=== PATIENT | female | born 1955 | race African-American/Black ===

== ENCOUNTER 2016-07-05 20:48 | Observation (INO) | payer OTHER, BC ==
[~2016-07-05] VITALS: Ht 162.6 cm; Wt 88.7 kg
[~2016-07-05 20:48] MED LIST: ASPIRIN325 MG PO; ATARAX,VISTARIL25 MG PO; CYANOCOBALAM1000 MCG PO; DAILY VITAMIN1 EAC8 PO; DILAUDID4 MG PO; DONEPEZIL HCL10 MG PO; EFFEXOR25 MG PO; ELAVIL25 MG PO; FIORICET,ESG1 TABLET PO; FISH OIL 1,0001 EAC7 PO; FLOMAX0.4 MG PO; GABAPENTIN300 MG PO; HYDROXYZINE HCL25 MG PO; IMODIUM MS REL1 EACH PO; INNOPRAN XL80 MG PO; LAMOTRIGINE100 MG PO; LITE COAT ASPI325 M1 PO; MEDROL DOSEPAK4 MG PO; MEMANTINE HCL10 MG PO; METHOCARBAMOL500 MG PO; PERCOCET 5/31 TABLET PO; SYNTHROID25 MCG PO; THORAZINE10 MG PO; VENLAFAXINE HCL25 MG PO; VITAMIN B-6100 MG PO; VITAMIN B6; VITAMIN D; VITAMIN D1000 INTUN PO; VITAMIN D5000 UNI1 PO; ZOCOR40 MG PO; ZOFRAN ODT4 MG PO
[2016-07-05 22:08] LABS: HEMATOCRIT 31.2 % (36.0-46.0); MCHC 32.1 G/DL (30.0-36.0); MCV 81.3 FL (83-99); MEAN PLAT.VOLUME 11.8 uM^3 (9.5-12.4); PLATELET COUNT 254 K/uL (156-360); RBC DIS.WIDTH-SD 46.1 % (39-53); RED BLOOD COUNT 3.84 M/uL (3.80-5.20); WHITE BLOOD COUNT 5.2 K/uL (4.1-10.2)
[2016-07-05 22:18] LABS: CHLORIDE 107 mEq/L (99-109); POTASSIUM 3.8 mEq/L (3.7-5.4); SODIUM 140 mEq/L (136-147)
[2016-07-05 22:19] LABS: GLUCOSE 87 mg/dL (70-99)
[2016-07-05 22:21] LABS: ANION GAP 9 MEQ/L (2-14)
[2016-07-05 22:23] LABS: GFR ESTIMATE (CALCULATED) > 59 mL/min/
[2016-07-05 22:24] LABS: UREA NITROGEN (BUN) 16 mg/dL (9-23)
[2016-07-05 22:29] LABS: TROP-I INTERPRETATION NEGATIVE; TROPONIN-I < 0.01 ng/mL (0.0-0.30)
[2016-07-05] MEDS ORDERED: ZOLPIDEM TARTRAT5 MG PO (23:31)
[2016-07-05] MEDS ORDERED: FUROSEMIDE40 MG PO (23:31)
[2016-07-05] MEDS ORDERED: FLONASE16 G1 BOTH NARES (23:32)
[2016-07-05] MEDS ORDERED: TAMSULOSIN HCL0.4 MG PO (23:32)
[2016-07-05] MEDS ORDERED: OXYCODONE HCL15 MG PO (23:33)
[2016-07-05] MEDS ORDERED: ATARAX,VISTARIL25 MG PO (23:33)
[2016-07-05] MEDS ORDERED: OXYCODONE HCL E40 MG PO (23:34)
[2016-07-05] MEDS ORDERED: LINZESS290 MCG PO (23:34)
[2016-07-05] MEDS ORDERED: DAILY VITE1 EAC1 PO (23:38)
[2016-07-06 00:59] VITALS: BP 123/79
[2016-07-06 01:12] VITALS: BP 148/71
[2016-07-06 01:32] LABS: HDL CHOLESTEROL 79 MG/DL (Desirable>=50); LDL CHOLESTEROL 106 mg/dL (Desirable<100); NON-HDL CHOLESTEROL 118 mg/dL (Desirable<160); TOTAL CHOLESTEROL 197 mg/dL (Desirable<200); TRIGLYCERIDES 61 MG/DL (Normal: <150)
[2016-07-06 05:57] VITALS: BP 127/60
[2016-07-06 06:15] LABS: HEMATOCRIT 27.9 % (36.0-46.0); MCH 26.1 PG (29.0-34.0); MCHC 32.3 G/DL (30.0-36.0); MCV 80.9 FL (83-99); MEAN PLAT.VOLUME 11.7 uM^3 (9.5-12.4); PLATELET COUNT 227 K/uL (156-360); RBC DIS.WIDTH-CV 16.1 % (11.8-14.6); RBC DIS.WIDTH-SD 47.8 % (39-53); RED BLOOD COUNT 3.45 M/uL (3.80-5.20); WHITE BLOOD COUNT 4.4 K/uL (4.1-10.2)
[2016-07-06 06:37] LABS: ALKALINE PHOSPHATASE 80 IU/L (3-129); ANION GAP 6 MEQ/L (2-14); CHLORIDE 108 MEQ/L (99-109); GFR ESTIMATE (CALCULATED) > 59 mL/min/; GLUCOSE 94 mg/dL (70-99); IRON 42 MCG/DL (35-150); POTASSIUM 4.2 MEQ/L (3.7-5.4); SAMPLE HEMOLYSIS CHECK 0; SAMPLE ICTERIC CHECK 0; SAMPLE LIPEMIA CHECK 0; SODIUM 141 MEQ/L (136-147); TOTAL BILIRUBIN 0.3 MG/DL (0.0-1.0); UREA NITROGEN (BUN) 13 mg/dL (9-23)
[2016-07-06 06:57] LABS: Estimated Average Glucose 114 mg/dL (70-123); HEMOGLOBIN A1c (GLYCOHEMOGLOB) 5.6 % HGB (Below 5.7)
[2016-07-06 07:38] VITALS: BP 133/72
[2016-07-06 07:58] LABS: FERRITIN 11 NG/ML (10-291)
[2016-07-06 12:18] VITALS: BP 134/60
== END 2016-07-06 14:22 | disposition home or self-care (01) ==
LOC: EME 20:48 → 5WEST 23:26 → EDOF 23:26 → 5WEST 07-06 00:40
PROVIDERS: Internal Medicine
DX: G43.909 Migraine, unspecified, not intractable, without status migrainosus (principal); Z86.73 Personal history of transient ischemic attack (TIA), and cerebral infarction without residual deficits; E03.9 Hypothyroidism, unspecified; M54.30 Sciatica, unspecified side; K58.9 Irritable bowel syndrome, unspecified; Z98.84 Bariatric surgery status; E66.9 Obesity, unspecified; Z68.33 Body mass index [BMI] 33.0-33.9, adult; Z79.899 Other long term (current) drug therapy
CPT/HCPCS: 70450; 70551; 71020; 80048; 80053; 80061; 82607; 82728; 83036; 83540; 84466; 84484; 85027; 93005; 93880; 99281; 99285; G0378; G8978 GP CH; G8979 GP CH; G8980 GP CH; J0780; J1200; J1644; J7030

== ENCOUNTER 2016-08-17 23:25 | Emergency (ER) | payer OTHER, BC ==
[~2016-08-17] VITALS: Ht 162.6 cm; Wt 94.9 kg
[~2016-08-17 23:25] MED LIST changes: +DAILY VITE1 EAC1 PO; +FLONASE16 G1 BOTH NARES; +FUROSEMIDE40 MG PO; +LINZESS290 MCG PO; +OXYCODONE HCL E40 MG PO; +OXYCODONE HCL15 MG PO; +TAMSULOSIN HCL0.4 MG PO; +ZOLPIDEM TARTRAT5 MG PO
[2016-08-17 23:59] LABS: EOSINOPHIL (%) 0.6 % (0-5); EOSINOPHIL COUNT 0.1 K/uL (0-0.3); HEMATOCRIT 36.6 % (36.0-46.0); IMMATURE GRANULOCYTE (%) 0.5 % (0.0-0.7); IMMATURE GRANULOCYTE COUNT 0.1 K/uL; INSTRUMENT ABS NEUTROPHIL CT 13.3 K/uL; LYMPHOCYTE COUNT 1.5 K/uL (1.0-2.8); MCH 26.1 PG (29.0-34.0); MCHC 31.4 G/DL (30.0-36.0); MONOCYTE (%) 5.7 % (3-12); MONOCYTE COUNT 0.9 K/uL (0-0.8); NEUTROPHIL (%) 83.7 % (45-76); NEUTROPHIL COUNT 13.3 K/uL (1.8-6.4); PLATELET COUNT 304 K/uL (156-360); RBC DIS.WIDTH-CV 15.9 % (11.8-14.6); RBC DIS.WIDTH-SD 48.5 % (39-53); RED BLOOD COUNT 4.41 M/uL (3.80-5.20); WHITE BLOOD COUNT 15.9 K/uL (4.1-10.2)
[2016-08-18 00:12] LABS: CHLORIDE 101 mEq/L (99-109); POTASSIUM 3.4 mEq/L (3.7-5.4); SODIUM 141 mEq/L (136-147)
[2016-08-18 00:14] LABS: GLUCOSE 74 mg/dL (70-99)
[2016-08-18 00:15] LABS: ANION GAP 12 MEQ/L (2-14)
[2016-08-18 00:16] LABS: TOTAL BILIRUBIN 0.2 mg/dL (0.0-1.0)
[2016-08-18 00:17] LABS: ALKALINE PHOSPHATASE 132 IU/L (3-129)
[2016-08-18 00:18] LABS: GFR ESTIMATE (CALCULATED) > 59 mL/min/
[2016-08-18 00:19] LABS: UREA NITROGEN (BUN) 22 mg/dL (9-23)
[2016-08-18 00:20] LABS: TROP-I INTERPRETATION NEGATIVE; TROPONIN-I < 0.01 ng/mL (0.0-0.30)
[2016-08-18 00:21] LABS: CREATINE KINASE 66 IU/L (1-294); TOTAL CK 66 IU/L (1-294)
[2016-08-18 00:26] LABS: CK-MB 0.5 ng/mL (0.0-4.9)
[2016-08-18 01:34] VITALS: BP 97/61
== END 2016-08-18 01:36 | disposition left against medical advice (07) ==
LOC: EME → EDBD 23:25 → EME 08-18 01:36
PROVIDERS: Emergency Medicine
DX: G40.909 Epilepsy, unspecified, not intractable, without status epilepticus (principal); M79.604 Pain in right leg; G43.909 Migraine, unspecified, not intractable, without status migrainosus; Z86.73 Personal history of transient ischemic attack (TIA), and cerebral infarction without residual deficits; Z88.6 Allergy status to analgesic agent; Z98.84 Bariatric surgery status
CPT/HCPCS: 70450; 80053; 81003; 82550; 82553; 84484; 85025; 99281; 99285; J0780; J1200; J7030

== ENCOUNTER 2017-09-26 20:06 | Observation (INO) | payer OTHER, BC ==
[~2017-09-26] VITALS: Ht 162.6 cm; Wt 107.7 kg
[2017-09-26 21:06] LABS: HEMATOCRIT 34.7 % (36.0-46.0); HEMOGLOBIN 11.3 G/DL (11.9-15.5); MCHC 32.6 G/DL (30.0-36.0); MCV 85.9 FL (83-99); PLATELET COUNT 285 K/uL (156-360); RBC DIS.WIDTH-CV 14.6 % (11.8-14.6); RBC DIS.WIDTH-SD 45.5 % (39-53); RED BLOOD COUNT 4.04 M/uL (3.80-5.20); WHITE BLOOD COUNT 7.5 K/uL (4.1-10.2)
[2017-09-26 21:20] LABS: CHLORIDE 108 mEq/L (99-109); POTASSIUM 4.4 mEq/L (3.7-5.4); SODIUM 139 mEq/L (136-147)
[2017-09-26 21:21] LABS: GLUCOSE 73 mg/dL (70-99)
[2017-09-26 21:25] LABS: GFR ESTIMATE (CALCULATED) > 59 mL/min/
[2017-09-26 21:26] LABS: UREA NITROGEN (BUN) 19 mg/dL (9-23)
[2017-09-26] MEDS ORDERED: LASIX80 MG PO (23:40)
[2017-09-26] MEDS ORDERED: MAGNESIUM400 M1 PO (23:42)
[2017-09-26] MEDS ORDERED: ASPIRIN325 MG PO (23:43)
[2017-09-26] MEDS ORDERED: ONE DAILY FOR1 EAC3 PO (23:44)
[2017-09-26] MEDS ORDERED: VITAMIN B COMP1 EACH PO (23:46)
[2017-09-26] MEDS ORDERED: VITAMIN B125000 MCG PO (23:56)
[2017-09-27 02:25] VITALS: BP 129/59
[2017-09-27 05:42] LABS: HDL CHOLESTEROL 63 MG/DL (Desirable>=50); LDL CHOLESTEROL 84 mg/dL (Desirable<100); NON-HDL CHOLESTEROL 92 mg/dL (Desirable<160); TOTAL CHOLESTEROL 155 mg/dL (Desirable<200); TRIGLYCERIDES 39 MG/DL (Normal: <150)
[2017-09-27 07:30] VITALS: BP 99/50
[2017-09-27 10:04] LABS: HEMOGLOBIN A1c (GLYCOHEMOGLOB) 5.2 % (Below 5.7)
[2017-09-27] MEDS ORDERED: VALACYCLOVIR500 MG PO (11:31)
[2017-09-27] MEDS ORDERED: PREDNISONE10 MG PO (11:32)
[2017-09-27 11:48] VITALS: BP 116/56
== END 2017-09-27 12:41 | disposition home or self-care (01) ==
LOC: EME 20:06 → EDOF 09-27 00:45 → 4SOUTH 09-27 00:45 → ENRESERV 09-27 00:51 → 4SOUTH 09-27 02:08
PROVIDERS: Hospitalist
DX: G51.0 Bell's palsy (principal); Z86.73 Personal history of transient ischemic attack (TIA), and cerebral infarction without residual deficits; R56.9 Unspecified convulsions; G43.909 Migraine, unspecified, not intractable, without status migrainosus; E03.9 Hypothyroidism, unspecified; E66.9 Obesity, unspecified; Z98.84 Bariatric surgery status; Z88.1 Allergy status to other antibiotic agents; Z88.6 Allergy status to analgesic agent; Z79.82 Long term (current) use of aspirin
CPT/HCPCS: 70450; 70496; 70498; 70551; 71046; 80047; 80048; 80061; 83036; 85027; 93005; 93306; 99281; 99285; G0378; J1644; J7512